=== PATIENT | female | born 1940 | race Caucasian/White ===

== ENCOUNTER 2017-03-01 10:02 | Day surgery (SDC) | payer BC ==
[2017-02-24 17:09] VITALS: BMI 24.1
[2017-03-01] MEDS ORDERED: BUPIVACAINE HCL/PF 0.5% (5MG/ML) 10 ML VIAL ONE (12:22)
[2017-03-01] MEDS ORDERED: morphine CARPU-JECT 10 MG/1 ML DISP.SYRIN ONE (12:22)
[2017-03-01] MEDS ORDERED: LACTATED RINGERS SOLUTION 1,000 ML IV SCH (12:30)
[2017-03-01 13:40] VITALS: TEMP 97.8
[2017-03-01] MEDS ORDERED: ONDANSETRON 4 MG/2 ML VIAL IVPUSH PRN (13:42)
[2017-03-01] MEDS ORDERED: oxyCODONE HCL 5 MG TABLET PO PRN (13:43)
[2017-03-01] MEDS ORDERED: ONDANSETRON 4 MG/2 ML VIAL ONE (13:45)
[2017-03-01 15:32] VITALS: BP 134/62; PULSE 62
--- NOTE | 2017-03-02 14:35 | OP ---
DATE OF OPERATION: 03/01/2017 PREOPERATIVE DIAGNOSIS: Torn medial meniscus to the left knee. 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 PROCEDURE PERFORMED: Operative arthroscopy of the left knee with partial medial and lateral meniscectomy, chondroplasty, synovectomy, and joint debridement. SURGEON: Jeff Valdez MD CUTTER INSPECTOR: RICHI Freeman ANESTHESIOLOGIST: Mylene Markham DO and Jeff Diego MD ANESTHESIA: General anesthesia. Procedure consisted of the patient being brought in the operating room and gently transferred from the stretcher to the OR table with all bony prominences well padded. The left leg was prepared and draped in sterile fashion. Patient was given intravenous antibiotics, copious irrigation throughout the procedure to minimize risk of infection. A complete risks and benefits discussion was conducted with the patient which was inclusive of but not limited to infection, bleeding, , paralysis, increased pain, need for repeat surgery. Patient asked questions about the procedure and decided to proceed with surgical treatment. Following sterile preparation and draping of the left leg, the leg was exsanguinated using Esmarch bandage and tourniquet inflated to 325 mmHg. It should be noted that an appropriate timeout which was inclusive of but not limited to site of surgery, name of surgeon, anesthesiologist, type of surgery was conducted prior to initiation of surgery. Following the sterile preparation and draping of the left leg, the leg was exsanguinated with the use of Esmarch bandage, tourniquet inflated to 325 mmHg. Suprapatellar, medial and lateral joint line portals were used to introduce the laparoscope and laparoscopic instruments. The knee was examined. There was noted be hypertrophic synovium in the suprapatellar pouch. A partial synovectomy was performed. Inferior surface of the patella damage consisted of chondromalacia and this was smoothed using shaver and a radiofrequency wand. The medial and lateral gutters were without plica or loose body. Medial meniscus was found to have a tear of the posterior horn and was resected using shaver and radiofrequency wand. The intercondylar region was found to have joint debris, and a joint debridement was performed. The anterior cruciate ligament was found to be intact. Lateral meniscus was found to have a tear of the posterior horn and was resected using shaver and radiofrequency wand. The knee was then copiously irrigated with sterile saline irrigant and the wounds were closed with 4-0 undyed Vicryl followed by Steri-Strips, Xeroform, 4 x 4's, Dexter bandage, and knee immobilizer. The tourniquet was deflated after approximately 20 minutes' tourniquet time. There were no intraoperative complications. Billy [id number] MTDD
--- NOTE | 2017-03-03 14:39 | PATH ---
Surgical Pathology Report Patient Name: PHILIPPE SALEEM [facility]. Rec. #: [id number] /Age/Gender: 1940 (Age: 76) / F Account: [id number] Location: [facility] AMBULATORY Taken: 03/01/2017 Received: 03/01/2017 Reported: 03/03/2017 Physicians: Jeff Valdez M.D. Specimen(s) Received SHAVINGS LEFT KNEE Clinical History Internal derangement left knee Final Diagnosis KNEE, LEFT, ARTHROSCOPIC SHAVING: FIBROCARTILAGE WITH MYXOID DEGENERATIVE CHANGES, ALONG WITH PORTIONS OF SYNOVIUM AND HYALINE CARTILAGE. Electronically Signed Gigi Heath M.D. Gross Description Received in formalin labeled "shavings left knee," is a 1.5 x 1.0 x 0.2 cm aggregate of monsivais-yellow soft tissue fragments. The formalin is filtered and the specimen is entirely submitted in one cassette. /03/02/2017 saudi/03/02/2017
== END 2017-03-01 15:33 | disposition home or self-care (01) ==
LOC: FASU 10:02
PROVIDERS: ATTEND Orthopaedic Surgery
PROC: 0SBD4ZZ Excision of Left Knee Joint, Percutaneous Endoscopic Approach (ICD-10-PCS; 2017-03-01)
PROC: 0SBD4ZZ Excision of Left Knee Joint, Percutaneous Endoscopic Approach (ICD-10-PCS; principal; 2017-03-01 12:59)
DX: S83.242A Other tear of medial meniscus, current injury, left knee, initial encounter (principal); S83.282A Other tear of lateral meniscus, current injury, left knee, initial encounter; M94.262 Chondromalacia, left knee; M67.262 Synovial hypertrophy, not elsewhere classified, left lower leg; X58.XXXA Exposure to other specified factors, initial encounter; Y93.9 Activity, unspecified; Y92.9 Unspecified place or not applicable
CPT/HCPCS: 29880; G0289; 88304-TC; 94760